=== PATIENT | male | born 1985 | race Two or more races ===

== ENCOUNTER 2023-03-15 17:20 | Emergency (ER) | payer SELFPAY ==
[2023-03-15] MEDS ORDERED: Diphtheria,Pertussis(Acell),Tetanus Vaccine 0.5 ML Syringe IM ONE (19:14)
[2023-03-15] MEDS ORDERED: HYDROmorphone 0.5 MG/0.5 ML Syringe IM ONE (19:14)
[2023-03-15] MEDS ORDERED: Cefdinir 300 MG Cap PO ONE (19:33)
== END 2023-03-15 21:01 | disposition home or self-care (01) ==
LOC: JD.ED 17:20
DX: S62.631B Displaced fracture of distal phalanx of left index finger, initial encounter for open fracture (principal); S67.191A Crushing injury of left index finger, initial encounter; Z23 Encounter for immunization; W23.1XXA Caught, crushed, jammed, or pinched between stationary objects, initial encounter; Y99.0 Civilian activity done for income or pay
CPT/HCPCS: 73140; 90471; 90715; 96372; 99283; A9270; J1170; 99284